=== PATIENT | male | born 1990 | race African-American/Black ===

== ENCOUNTER 2019-04-21 01:46 | Emergency (ER) | payer OTHER, MEDICAID ==
[~2019-04-21] VITALS: Ht 180.3 cm; Wt 92.0 kg
[2019-04-21] MEDS ORDERED: IBUPROFEN 600MG TABLET PO STA (04:16)
[2019-04-21 06:05] VITALS: BP 119/76
== END 2019-04-21 06:10 | disposition home or self-care (01) ==
LOC: ER 01:46
DX: S63.696A Other sprain of right little finger, initial encounter (principal); J45.909 Unspecified asthma, uncomplicated; Z87.828 Personal history of other (healed) physical injury and trauma; Y35.893A Legal intervention involving other specified means, suspect injured, initial encounter; Y93.89 Activity, other specified; Y92.89 Other specified places as the place of occurrence of the external cause
CPT/HCPCS: 73130; 99283

== ENCOUNTER 2021-01-29 17:05 | Emergency (ER) | payer MEDICAID, OTHER ==
[~2021-01-29] VITALS: Ht 180.3 cm; Wt 100.0 kg
[2021-01-29 17:55] VITALS: BP 126/84
[2021-01-29] MEDS ORDERED: HYDROCODONE/ACETAMINOPHEN 5/325MG TABLET PO ONE (18:00)
[2021-01-29] MEDS ORDERED: CEPH500C2 MT ×2 (18:20)
[2021-01-29] MEDS ORDERED: IBUP-2028 PO (18:37)
[2021-01-29] MEDS ORDERED: T3 PO (18:37)
== END 2021-01-29 19:18 | disposition home or self-care (01) ==
LOC: ER 17:05
DX: S52.392A Other fracture of shaft of radius, left arm, initial encounter for closed fracture (principal); J45.909 Unspecified asthma, uncomplicated; Z98.890 Other specified postprocedural states; Z87.828 Personal history of other (healed) physical injury and trauma; W22.8XXA Striking against or struck by other objects, initial encounter; Y93.89 Activity, other specified; Y92.018 Other place in single-family (private) house as the place of occurrence of the external cause; Y99.8 Other external cause status
CPT/HCPCS: 29105; 73110; 99283; A4565